=== PATIENT | male | born 1980 | race Two or more races ===

== ENCOUNTER 2020-12-03 06:46 | Emergency (ER) | payer SELFPAY ==
[~2020-12-03] VITALS: Ht 177.8 cm; Wt 90.0 kg
[2020-12-03] MEDS ORDERED: FLUORESCEIN OPHTH TEST STRIP. OU ONE (07:15)
[2020-12-03] MEDS ORDERED: TETRACAINE 0.5% OPHTH SOLUTION 4ML BOTTLE. OU ONE (07:15)
[2020-12-03] MEDS ORDERED: DIPH,PERTUSS(ACELL),TET VAC/PF 0.5 ML SYRINGE. VAX IM ONE (07:45)
--- NOTE | 2020-12-03 08:08 | PHYS DOC ---
Past Medical History Past Medical History: No Pertinent History Past Surgical History: No Surgical History General Adult EDM: Chief Complaint: EYE PROBLEMS HPI: HPI: Patient is a 40 year old PRESENTED to the ER today for evaluation of foreign body in his right cornea after he was working underneath his car yesterday. Patient is not up-to-date on her tetanus status Review of Systems: Review of Systems: Constitutional: Denies fever or chills. [] Eyes: Denies change in visual acuity. Positive for right eye pain HENT: Denies nasal congestion or sore throat. [] Respiratory: Denies cough or shortness of breath. [] Cardiovascular: Denies chest pain or edema. [] GI: Denies abdominal pain, nausea, vomiting, bloody stools or diarrhea. [] : Denies dysuria. [] Musculoskeletal: Denies back pain or joint pain. [] Integument: Denies rash. [] Neurologic: Denies headache, focal weakness or sensory changes. [] Endocrine: Denies polyuria or polydipsia. [] Lymphatic: Denies swollen glands. [] Psychiatric: Denies depression or anxiety. [] Heart Score: C/O Chest Pain: N/A Risk Factors: Risk Factors: DM, Current or recent (<one month) smoker, HTN, HLP, family history of CAD, obesity. Risk Scores: Score 0 - 3: 2.5% MACE over next 6 weeks - Discharge Home Score 4 - 6: 20.3% MACE over next 6 weeks - Admit for Clinical Observation Score 7 - 10: 72.7% MACE over next 6 weeks - Early Invasive Strategies Current Medications: Current Medications Medications (Trade) Dose Ordered Sig/Radha Start Time Stop Time Status Last Admin Dose Admin Diphtheria/ Tetanus/Acell Pertussis (ADACEL TDap SYRINGE) 0.5 ml ONCE ONCE 12/03/20 07:45 12/03/20 07:46 DC 12/03/20 07:58 0.5 ML Fluorescein Sodium (Ful-Brittany) 1 strip 1X ONCE 12/03/20 07:15 12/03/20 07:17 DC 12/03/20 07:14 1 STRIP Tetracaine HCl (Tetracaine) 1 drop 1X ONCE 12/03/20 07:15 12/03/20 07:17 DC 12/03/20 07:14 1 DROP Allergies: Allergies: Allergies Coded Allergies Type Severity Reaction Last Updated Verified Penicillins Allergy Intermediate 12/03/20 Yes Physical Exam: PE: Constitutional: Well developed, well nourished, no acute distress, non-toxic appearance. [] HENT: Normocephalic, atraumatic, bilateral external ears normal, oropharynx moist, no oral exudates, nose normal. [] Eyes: PERRLA, EOMI, conjunctiva normal, no discharge. Corneal abrasion at 9 o'clock position with a small foreign body embedded in right cornea at the 9 oclock position. no hyphema. NEGATIVE EPHRAIM TEST. Neck: Normal range of motion, no tenderness, supple, no stridor. [] Cardiovascular:Heart rate regular rhythm, no murmur [] Lungs & Thorax: Bilateral breath sounds clear to auscultation [] Abdomen: Bowel sounds normal, soft, no tenderness, no masses, no pulsatile masses. [] Skin: Warm, dry, no erythema, no rash. [] Back: No tenderness, no CVA tenderness. [] Extremities: No tenderness, no cyanosis, no clubbing, ROM intact, no edema. [] Neurologic: Alert and oriented X 3, normal motor function, normal sensory function, no focal deficits noted. [] Psychologic: Affect normal, judgement normal, mood normal. [] Current Patient Data: Vital Signs: Vital Signs Date Time Temp Pulse Resp B/P (MAP) Pulse Ox O2 Delivery O2 Flow Rate FiO2 12/03/20 07:05 98.9 72 16 147/79 Room Air 98.9 EKG: EKG: [] Radiology/Procedures: Radiology/Procedures: FOREIGN BODY IN RIGHT CORNEA WAS REMOVED USING THE TIP OF THE 18 GAUGE NEEDLE TO FLICK IT OUT. THE RING RUST WAS PARTIALLY SHAVED OFF USING THE EYE DAVID. PATIENT TOLERATED IT WELL. PATIENT WAS DISCHARGED HOME, TETANUS WAS UPDATED, WILL NEED TO FOLLOW UP WITH OPTHALMOLOGY ON FRIDAY. Course & Med Decision Making: Course & Med Decision Making Pertinent Labs and Imaging studies reviewed. (See chart for details) [] Dragon Disclaimer: Dragon Disclaimer: This electronic medical record was generated, in whole or in part, using a voice recognition dictation system. Departure Departure Impression: Primary Impression: Foreign body of right cornea with residual material Disposition: HOME / SELF CARE / HOMELESS Condition: IMPROVED Referrals: NO PCP (PCP) Please call this EYE DOCTOR BELOW FOR FOLLOW UP IN 1-[address] Marques Kim [phone] [place]. [address] Patient Instructions: Eye - Corneal Foreign Body Scripts Tobramycin Ophth (TOBRAMYCIN OPHTH DROPS) 5 Ml Drops 1 DROP OD QID for 7 Days, #5 ML 0 Refills Prov: CHRISTAL COBB DO 12/03/20 Gentamicin Sulfate (GENTAMICIN SULFATE 0.3% OPHTH OINT) 3.5 Gm Oint...g. 1 PERRY OD BID for 7 Days, #1 EACH Prov: CHRISTAL COBB DO 12/03/20 CHRISTAL COBB DO Dec 03, 2020 08:08
[2020-12-03] MEDS ORDERED: GENT3.5O9 OD (08:13)
[2020-12-03] MEDS ORDERED: TOBR5DRO6 OD (08:13)
[2020-12-03 08:23] VITALS: BP 147/79
== END 2020-12-03 08:15 | disposition home or self-care (01) ==
LOC: ER 06:46
DX: T15.01XA Foreign body in cornea, right eye, initial encounter (principal); Z88.0 Allergy status to penicillin; X58.XXXA Exposure to other specified factors, initial encounter; Y93.89 Activity, other specified; Y92.89 Other specified places as the place of occurrence of the external cause; Y99.8 Other external cause status
CPT/HCPCS: 65222; 90471; 90715; 99284